=== PATIENT | female | born 2000 | race Caucasian/White ===

== ENCOUNTER 2021-01-14 16:00 | Emergency (ER) | payer MEDICAID, OTHER ==
[2021-01-14] MEDS ORDERED: Ketorolac 30 MG/ML SDV IM ONE (16:14)
[2021-01-14] MEDS ORDERED: Orphenadrine 60 MG/2 ML Inj IM ONE (16:14)
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
== END 2021-01-14 16:45 | disposition home or self-care (01) ==
LOC: VM.ED 16:00
DX: S06.0X0A Concussion without loss of consciousness, initial encounter (principal); S13.4XXA Sprain of ligaments of cervical spine, initial encounter; V40.9XXA Unspecified car occupant injured in collision with pedestrian or animal in traffic accident, initial encounter; Y92.410 Unspecified street and highway as the place of occurrence of the external cause
CPT/HCPCS: 96372; 99283; J1885; J2360